=== PATIENT | female | born 1980 | race Two or more races ===

== ENCOUNTER 2024-06-11 14:57 | Outpatient (AMB) | payer BC, SELFPAY ==
--- NOTE | 2024-06-11 15:09 | GYNCLNT_ITS ---
Vital Signs 06/11/24 15:23 Height 1.55 m Height Method Stated Weight 65.884 kg Weight Measurement Method Standing Scale BMI 27.4 BP 118/77 Blood Pressure Source Automatic Cuff Blood Pressure Location Left Upper Arm Position Sitting Respiration 14 Pulse 63 Pulse Source Monitor Temp 98.1 F Temp Source Oral Pulse Oximetry (%) 98 Oxygen Delivery Method Room Air Allergies/Home Meds Allergies & Medications Allergies STATINS Allergy (Uncoded 06/11/24 15:24) Medication Reconciliation Unobtainable 06/11/24 [History Confirmed 06/11/24] Intake Visit Data Collection New Patient or Established: New Patient (never been to [facility]) Reason for Visit:: ANNUAL WELLNESS Seen by Clinical Staff ONLY (RN/MA): No Sponge Packer Required: No Do You Feel Safe at Home: Yes Authorities Contacted: N/A PCP or OBGYN visit in last 3 months: Yes Hx Now: No Are you currently on any form of Control: Yes Pain Present Currently: No Pain Scale Used: [place]-Ward/Numerical Pain scale:: 0 Smoking Status Smoking Status: Never smoker 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 1. Little interest or pleasure in doing things: not at all 2. Feeling down, depressed, or hopeless: not at all Total score: 0 PHQ-9 3. Trouble falling or staying asleep, or sleeping too much: Not at all 4. Feeling tired or having little energy: Not at all 5. Poor appetite or overeating: Not at all 6. Feeling bad about yourself - or that you are a failure or have let yourself or your family down: Not at all 7. Trouble concentrating on things, such as reading the newspaper or watching television: Not at all 8. Moving or speaking so slowly that other people could have noticed? - Or the opposite - being so fidgety or restless that you have been moving around a lot more than usual: not at all 9. Thoughts that you would be better off or of hurting yourself in some way: Not at all Total score: 0 Source: Developed by Drs. Logan Dangelo, Sultana Helm, Edis Geronimo and colleagues, with an educational luke from [employer]. Depression screen completed yes Social History Living Situation History Marital Status: Lives With: Family Housing: House Tobacco History Smoking Status: Never smoker Second Hand Smoke Exposure: No Alcohol History Alcohol Intake: Current Alcohol Intake Frequency: holidays/special occasions only Domestic Abuse History Do You Feel Safe at Home: Yes Past Medical History Past Medical History Have you ever been diagnosed with any of the following: Neurological Problems Migraine: No Cardiology Problems Cardiac Arrhythmia: No Heart Murmur: No Atherosclerotic Heart Disease: No Hypercholesterolemia: No Deep Vein Thrombosis: No Hypertension: No Respiratory Problems Asthma: No Smoking: No Tobacco Use: No Stomache/Intestinal Problems Celiac Disease: No Gall Bladder Disease: No Irritable Bowel: No Genital/Urinary Problems Renal Disease: No Kidney Stones: No Reproductive Problems Breast Cancer: No Endometriosis: No Fibroids: No Genital Herpes: No Pelvic Inflammatory Disease: No Previous Pregnancies: Yes (Vaginal delivery x 2 in the past) Musculoskeletal Problems Arthritis: No Rheumatoid Arthritis: No Fibromyalgia: No Head,Eye,Nose,Throat Problems Glaucoma: No Endocrine Problems Diabetes Mellitus Type 2: No Hyperthyroidism: No Hypothyroidism: No Blood Problems Anemia: No Psychologic Problems Depression: No Anxiety: No Other Problems Hospitalization: Yes (For childbirth x 2) Autoimmune Disease: No Blood Transfusions: No Surgical History Appendectomy: No Bariatric Surgery: No History of Present Illness HPI Narrative The patient is a 44-year-old -0-0-2 presents for an annual exam. She was my patient from [place]. She did not release her records yet to me. She has no gynecological complaints today just presents to the [facility] and for an annual. She denies hot flashes night sweats urinary complaints. Patient is her Micah is a contractor. 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 Her son Ean is engaged she is 20 years old her other daughter is her name is Bernie and she has children. Patient is followed with Dr. Lawrence for cardiology for a family history of strokes in her mother and her maternal aunt. Menstrual character: absent Gynecologic pain symptoms: Reports none Menopause concerns/symptoms: Reports none Exam General Limitations: no limitations General Appearance: alert, in no apparent distress, comfortable, cooperative, healthy appearing, well developed and well groomed Neck Neck exam: Present normal inspection, full ROM and trachea midline Chest Chest inspection: Present normal inspection and symmetric chest wall rise Resp Respiratory exam: Present normal lung sounds bilaterally Card Cardiovascular exam: Present regular rate, normal rhythm and normal heart sounds Abdominal Abdominal exam: Present soft and normal bowel sounds External exam: Present normal external exam Speculum exam: Present normal speculum exam Bimanual exam: Present normal bimanual exam Extremities Extremities exam: Present normal inspection and full ROM Psych Psychiatric exam: Present normal affect and normal mood Skin Skin exam: Present warm, dry, intact and normal color Assessment & Plan Diagnosis / Problem List (1) Encounter for Routine Gynecological Examination: Qualifiers: Gynecological examination findings: abnormal findings ABSENT Qualified Code(s): Z01.419 - Encounter for gynecological examination (general) (routine) without abnormal findings Assessment and Plan: Pap with high-risk HPV was performed, breast exam done and encouraged. Patient is to release her records from [place] REPAIR MANAGER here. Office Procedures OB Clinic LOC & Office Proc's Nursing/Assessment Patient Status: Initial/New Patient OB Clinic Nursing Assessment: Medication Reconciliation, Update PMH in EMR and Vital Signs OB Clinic Coordination of Care: Complex Care and Chronic Disease 1-5, Consent,records obtained, informed consent, Education Simp Pt/Fam, Lab and Imaging orders and Staff clarify orders Miscellaneous Interventions: Breast Exam and Pelvic/Pap Smear Set up New Patient Charge New Patient Point Assignment: 1149 New Patient Point Charge: TROUBLE CLERK Level 4 ([id number]) In Clinic Procedures Pap Smear: Yes REPAIR MANAGER: Papsmear Pap Smear Procedure Chaparone in room during procedure?: No Pre-op diagnosis general: Annual women's wellness exam Post-op diagnosis procedure note: Same Procedure Notes:: Pap with cotesting to HPV was performed Papsmear completed: yes
[2024-06-11 15:23] VITALS: BP 118/77; PULSE 63; RESP 14; TEMP 36.7; O2SAT 98; BMI 27.4
== END 2024-06-11 16:04 | disposition home or self-care (01) ==
PROVIDERS: PCP Internal Medicine; Referring Provider Internal Medicine; Supervising Provider Obstetrics & Gynecology; Visit Provider Obstetrics & Gynecology
DX: Z01.419 Encounter for gynecological examination (general) (routine) without abnormal findings (principal); Z11.51 Encounter for screening for human papillomavirus (HPV)
CPT/HCPCS: 99204; Q0091; G0463